=== PATIENT | female | born 1990 | race Caucasian/White ===

== ENCOUNTER 2018-05-06 14:34 | Emergency (ER) | payer SELFPAY ==
[~2018-05-06] VITALS: Ht 162.6 cm; Wt 131.8 kg
[~2018-05-06 14:34] MED LIST: ACET-784 PO; FISH1CAP49 PO; PNV1TABL17 PO
[2018-05-06] MEDS ORDERED: IBUPROFEN 800 MG TABLET PO ONE (15:15)
[2018-05-06 17:21] VITALS: BP 135/82
== END 2018-05-06 17:32 | disposition home or self-care (01) ==
LOC: EMS 14:35
DX: S93.401A Sprain of unspecified ligament of right ankle, initial encounter (principal); Z88.0 Allergy status to penicillin; W01.0XXA Fall on same level from slipping, tripping and stumbling without subsequent striking against object, initial encounter; Y93.89 Activity, other specified; Y92.89 Other specified places as the place of occurrence of the external cause; Y99.8 Other external cause status
CPT/HCPCS: 29515; 99284